=== PATIENT | male | born 1945 | race Caucasian/White ===

== ENCOUNTER 2018-09-11 12:34 | Emergency (ER) | payer MEDICARE, MEDICAID ==
[~2018-09-11] VITALS: Ht 165.1 cm; Wt 85.5 kg
[2018-09-11] MEDS ORDERED: normal saline 1000ml 1,000 ML IV ONE (13:05)
[2018-09-11 13:25] LABS: BASOPHILS # (AUTO) 0.1 X10'3 (0-0.2); BASOPHILS % (AUTO) 0.3 % (0-1); HEMOGLOBIN 7.4 g/dl (14.0-17.9)
[2018-09-11 13:27] LABS: EOSINOPHILS # (AUTO) 0.6 X10'3 (0-0.9); HEMATOCRIT 23.1 % (42.0-52.0); LYMPHOCYTES # (AUTO) 1.7 X10'3 (1.1-4.8); LYMPHOCYTES % (AUTO) 7.9 % (21-51); MEAN CORPUSCULAR HEMOGLOBIN 28.1 PG (27.0-31.0); MEAN CORPUSCULAR VOLUME 87.8 FL (78-98); MEAN PLATELET VOLUME 9.8 FL (7.4-10.4); MONOCYTES # (AUTO) 5.7 X10'3 (0-0.9); MONOCYTES % (AUTO) 26.9 % (2-12); NEUTROPHILS # (AUTO) 13.2 X10'3 (1.8-7.7); NEUTROPHILS % (AUTO) 61.9 % (42-75); PLATELET COUNT 161 X10'3 (140-440); RED BLOOD COUNT 2.63 X10'6 (4.70-6.10); RED CELL DISTRIBUTION WIDTH 18.9 % (11.5-14.5); WHITE BLOOD COUNT 21.3 X10'3 (4.5-11.0)
[2018-09-11 13:30] LABS: ALANINE AMINOTRANSFERASE 16 U/L (12-78); ALBUMIN 2.3 G/DL (3.4-5.0); ALBUMIN/GLOBULIN RATIO 0.4 (1.1-1.5); ALKALINE PHOSPHATASE 141 IU/L (46-116); ANION GAP 6 (8-16); ASPARTATE AMINO TRANSFERASE 25 U/L (10-37); BILIRUBIN,TOTAL 0.6 MG/DL (0.1-1.0); BLOOD UREA NITROGEN 33 MG/DL (7-18); BUN/CREATININE RATIO 23.2 (5.4-32.0); CALCIUM 8.6 MG/DL (8.5-10.1); CHLORIDE 96 MMOL/L (99-107); CREATININE 1.42 MG/DL (0.60-1.10); GLUCOSE 150 MG/DL (70-104); SODIUM 131 MMOL/L (135-145); TOTAL CARBON DIOXIDE 28.7 MMOL/L (24-32); TOTAL PROTEIN 8.6 G/DL (6.4-8.2); eGFR 49 ML/MIN
[2018-09-11 13:31] LABS: CLARITY,URINE CLOUDY (Clear); COLOR,URINE YELLOW (Yellow); GLUCOSE, URINE NEGATIVE (Neg); KETONES,URINE NEGATIVE (Neg); LEUKOCYTE ESTERASE ,URINE NEGATIVE (Neg); NITRITES, URINE NEGATIVE (Neg); OCCULT BLOOD,URINE MODERATE (Neg); PH,URINE 5.5 (4.8-8.0); PROTEIN,URINE 30 mg/dl (Neg); UROBILINOGEN,URINE 0.2 E.U/dL (0.2-1.0)
[2018-09-11 13:32] LABS: UA COLLECTION TYPE FOLEY CATH
[2018-09-11 13:32] LABS: PARTIAL THROMBOPLASTIN TIME 32 SECONDS (22-32)
[2018-09-11 13:37] LABS: BACTERIA,URINE 1+ /HPF (Neg); SQUAMOUS EPITHELIAL CELL,UR FEW /LPF (FEW); YEAST MANY /HPF (NEGATIVE)
[2018-09-11 13:38] LABS: WBC,URINE 0-4 /HPF (0-4)
[2018-09-11 13:39] LABS: WBC CLUMPS,URINE FEW /HPF (NEGATIVE)
[2018-09-11 13:52] LABS: ANISOCYTOSIS 1+; PLATELET ESTIMATE NORMAL; TOTAL CELLS COUNTED 100
[2018-09-11] MEDS ORDERED: CefTRIAXone/D5W-Rocephin 1gm 50 ML IV ONE (14:00)
[2018-09-11] MEDS ORDERED: CIPR-230 PO (14:01)
--- NOTE | 2018-09-11 14:30 | NUR ---
[facility] HAS BEEN INITI[facility], NO DRIVERS AVAILABLE UNTIL AFTER 4.
[2018-09-11 15:23] VITALS: BP 141/67
== END 2018-09-11 16:40 | disposition home or self-care (01) ==
LOC: ER 12:35
DX: N39.0 Urinary tract infection, site not specified (principal); D64.9 Anemia, unspecified; J44.9 Chronic obstructive pulmonary disease, unspecified; Z86.14 Personal history of Methicillin resistant Staphylococcus aureus infection
CPT/HCPCS: 36415; 71045; 80053; 81001; 85025; 85610; 85730; 86885; 86900; 86901; 87088; 93005; 96365; 99284; J0696; J7030; 87077

== ENCOUNTER 2018-09-20 07:13 | Inpatient (IN) | payer MEDICARE, MEDICAID ==
[~2018-09-20] VITALS: Ht 165.1 cm; Wt 84.5 kg
[~2018-09-20 07:13] MED LIST: CIPR-230 PO; FLO0.4C PO; LACT1CAP65 PO; LANTUS SQ; UNABLE TO OBTAIN; VANC1VIA21 IV
[2018-09-20] MEDS ORDERED: methylPREDNISolone sod succ 125mg/2ml vial IV ONE (07:45)
[2018-09-20] MEDS ORDERED: ipratropium/albuterol 3ml nebule NEB ONE (07:45)
[2018-09-20] MEDS ORDERED: cefepime 1GM/NS ADD-VANTAGE 100 ML IV ONE (07:50)
[2018-09-20] MEDS ORDERED: levoFLOXACIN-Levaquin 500mg/D5 100 ML IV ONE (07:50)
[2018-09-20 08:07] LABS: BASOPHILS # (AUTO) 0.1 X10'3 (0-0.2); BASOPHILS % (AUTO) 0.2 % (0-1); HEMATOCRIT 23.9 % (42.0-52.0); HEMOGLOBIN 7.5 g/dl (14.0-17.9)
[2018-09-20 08:09] LABS: EOSINOPHILS # (AUTO) 0.5 X10'3 (0-0.9); EOSINOPHILS % (AUTO) 1.6 % (0-6); LYMPHOCYTES # (AUTO) 1.4 X10'3 (1.1-4.8); LYMPHOCYTES % (AUTO) 4.9 % (21-51); MEAN CORPUSCULAR HEMOGLOBIN 27.8 PG (27.0-31.0); MEAN CORPUSCULAR HGB CONC 31.6 g/dL (33.0-36.5); MEAN PLATELET VOLUME 10.1 FL (7.4-10.4); MONOCYTES # (AUTO) 6.5 X10'3 (0-0.9); MONOCYTES % (AUTO) 22.8 % (2-12); NEUTROPHILS # (AUTO) 20.1 X10'3 (1.8-7.7); NEUTROPHILS % (AUTO) 70.5 % (42-75); PLATELET COUNT 128 X10'3 (140-440); RED BLOOD COUNT 2.71 X10'6 (4.70-6.10); RED CELL DISTRIBUTION WIDTH 19.5 % (11.5-14.5)
[2018-09-20 08:19] LABS: ALANINE AMINOTRANSFERASE 14 U/L (12-78); ALBUMIN 2.3 G/DL (3.4-5.0); ALBUMIN/GLOBULIN RATIO 0.4 (1.1-1.5); ALKALINE PHOSPHATASE 138 IU/L (46-116); ANION GAP 8 (8-16); ASPARTATE AMINO TRANSFERASE 27 U/L (10-37); BILIRUBIN,TOTAL 0.7 MG/DL (0.1-1.0); BLOOD UREA NITROGEN 37 MG/DL (7-18); BUN/CREATININE RATIO 28.2 (5.4-32.0); CALCIUM 8.6 MG/DL (8.5-10.1); CHLORIDE 103 MMOL/L (99-107); CREATININE 1.31 MG/DL (0.60-1.10); GLUCOSE 130 MG/DL (70-104); POTASSIUM 4.3 MMOL/L (3.5-5.1); SODIUM 137 MMOL/L (135-145); TOTAL PROTEIN 8.2 G/DL (6.4-8.2); eGFR 53 ML/MIN
[2018-09-20 08:26] LABS: MAGNESIUM 1.7 MG/DL (1.5-2.4)
[2018-09-20 08:29] LABS: PARTIAL THROMBOPLASTIN TIME 28 SECONDS (22-32)
[2018-09-20 08:31] LABS: WHITE BLOOD COUNT 28.6 X10'3 (4.5-11.0)
--- NOTE | 2018-09-20 08:44 | NUR ---
called pharmacy,still making maxipime.
[2018-09-20 08:47] LABS: ANISOCYTOSIS 2+; HYPOCHROMASIA 1+; PLATELET ESTIMATE DECREASED; TOTAL CELLS COUNTED 100
[2018-09-20] MEDS ORDERED: aspirin 81mg tab.chew PO ONE (09:40)
[2018-09-20] MEDS ORDERED: nitroGLYCERIN 0.4mg/hour patch TD ONE (09:40)
--- NOTE | 2018-09-20 09:46 | NUR ---
patient placed on venturi mask 50% oxygen,sating 83%.
--- NOTE | 2018-09-20 09:46 | NUR ---
patient now back on non rebreather sating 92%.
--- NOTE | 2018-09-20 10:03 | NUR ---
Dr. perkins made aware that patient is requesting for pain medication for generalized pain,no order at this time.
[2018-09-20 10:10] LABS: ABG BASE EXCESS -1.8 mmol/L (-2.0-3.0); ABG HCO3 22.4 mmol/L (22.0-26.0); ABG OXYGEN SATURATION 92.5 % (95-98); ABG PCO2 (T) 35.4 mmHg (35.0-48.0); ABG PO2 (T) 69.7 mmHg (83-108); ALLEN'S TEST Positive; FCOHb 1.3 % (0.5-1.5); FLOW 15 L/min; FMetHb 0.3 % (0.3-1.12); TOTAL HEMOGLOBIN 7.6 G/dl (14.0-18.0)
--- NOTE | 2018-09-20 10:30 | NUR ---
patient started on bipap,call light within reach. Addendum: 09/20/18 at 1152 by KIM patient on cpap.
[2018-09-20] MEDS ORDERED: LORA0.5T PO (11:14)
[2018-09-20] MEDS ORDERED: SENN-162 PO (11:14)
[2018-09-20] MEDS ORDERED: MULT-1085 PO (11:14)
[2018-09-20] MEDS ORDERED: DOCU-148 PO (11:14)
[2018-09-20] MEDS ORDERED: FOLI0.4T2 PO (11:14)
[2018-09-20] MEDS ORDERED: PER5325T PO (11:14)
[2018-09-20] MEDS ORDERED: PRED1TAB PO (11:14)
[2018-09-20] MEDS ORDERED: POLY17PO10 PO (11:14)
[2018-09-20] MEDS ORDERED: OMEP40CA13 PO (11:14)
[2018-09-20] MEDS ORDERED: FLO0.4C PO (11:14)
[2018-09-20] MEDS ORDERED: MORP-92 PO (11:14)
[2018-09-20] MEDS ORDERED: LACT1CAP65 PO (11:14)
--- NOTE | 2018-09-20 11:22 | NUR ---
fio2 decreased to 45%.Goal 88-90%,patient sating 94%.
[2018-09-20] MEDS: morphine 2 MG/ML inj. syringe IV PRN ×2 (11:25→13:05)
[2018-09-20] MEDS ORDERED: magnesium 2GM in 50ml NS 50 ML IV PRN (11:40)
[2018-09-20] MEDS ORDERED: potassium Cl 20 mEq SR tablet PO PRN ×2 (11:40)
[2018-09-20] MEDS ORDERED: magnesium hydroxide 30ml (MOM) UD suspension PO PRN (11:40)
[2018-09-20] MEDS ORDERED: magnesium Cl slow-release 64mg tablet PO PRN (11:40)
[2018-09-20] MEDS: K and/or MAG REPLACEMENT MC SCH (11:40)
[2018-09-20] MEDS ORDERED: ipratropium/albuterol 3ml nebule NEB PRN (11:40)
[2018-09-20] MEDS ORDERED: ondansetron/PF 4mg/2ml inj IV PRN (11:40)
[2018-09-20] MEDS ORDERED: furosemide 40mg/4ml inj IV ONE (11:40)
[2018-09-20] MEDS ORDERED: acetaminophen 325mg tablet PO PRN (11:40)
[2018-09-20] MEDS ORDERED: mag hydrox/Alum hydrox/simeth 30ml oral suspension PO PRN (11:40)
[2018-09-20] MEDS ORDERED: potassium CL 10mEq/100ml bag 100 ML IV PRN ×2 (11:40)
[2018-09-20] MEDS ORDERED: magnesium 4gm in 100ml NS 100 ML IV PRN (11:40)
--- NOTE | 2018-09-20 12:30 | NUR ---
repositioned for comfort.
[2018-09-20 12:31] LABS: ABG BASE EXCESS 0.3 mmol/L (-2.0-3.0); ABG HCO3 24.5 mmol/L (22.0-26.0); ABG OXYGEN SATURATION 93.4 % (95-98); ABG PCO2 (T) 37.7 mmHg (35.0-48.0); ABG PH (T) 7.431 (7.350-7.450); ABG PO2 (T) 71.4 mmHg (83-108); ALLEN'S TEST Positive; FMetHb 0.2 % (0.3-1.12); FO2Hb 92.3 % (94-100); MINUTE VOLUME 13 L/min; RESPIRATORY RATE (OBSERVED) 25 b/min; TOTAL HEMOGLOBIN 7.9 G/dl (14.0-18.0)
[2018-09-20] MEDS ORDERED: FERR-119 PO (12:41)
[2018-09-20] MEDS ORDERED: INSU100V11 SQ (12:48)
[2018-09-20] MEDS ORDERED: MELA3TAB64 PO (12:48)
[2018-09-20] MEDS ORDERED: FOLI1TAB16 PO (12:48)
[2018-09-20] MEDS ORDERED: IPRA3AMP31 IH (12:48)
[2018-09-20] MEDS ORDERED: OXYC-658 PO (12:50)
[2018-09-20] MEDS ORDERED: OXYC-580 PO (12:50)
[2018-09-20] MEDS ORDERED: THIA100T73 PO (12:55)
[2018-09-20] MEDS ORDERED: VANC750P8 IV (12:57)
--- NOTE | 2018-09-20 13:04 | NUR ---
patient repositioned to left side,skin checked,no noted skin breakdown.
--- NOTE | 2018-09-20 13:09 | NUR ---
urine output from cath 900ml.
--- NOTE | 2018-09-20 14:06 | NUR ---
CALLED REPORT TO PCU,RECEIVING RN WITH A PATIENT WILL CALL ED RN IN 10 MINUTES.
--- NOTE | 2018-09-20 14:10 | NUR ---
Received report from ER nurse.
--- NOTE | 2018-09-20 14:35 | NUR ---
Patient arrived to the unit. He was oriented to his room. His vital signs are stable: BP:119/64 HR:101 oxygen:92 on CPAP RR: 22
[2018-09-20 14:40] VITALS: BP 119/64
[2018-09-20] MEDS: ipratropium/albuterol 3ml nebule NEB SCH ×3 (15:02→23:11)
[2018-09-20] MEDS: methylPREDNISolone sod succ 125mg/2ml vial IV SCH ×2 (15:17→20:49)
--- NOTE | 2018-09-20 15:30 | NUR ---
While patient was receiving dialysis he went into SVT in the 140s. Dialysis nurse was informed. Blood pressure dropped to 86/67. Rapid was called and ICU nurse at bedside assessed. Dialysis nurse called Dr. Moon and informed him of the situation. orders were given to dialysis nurse. Patient then went into A.Fib. Will continue to monitor. Addendum: 09/20/18 at 1933 by Amber Bal RN timing of event was around 1730
[2018-09-20] MEDS ORDERED: cefepime 1GM/NS ADD-VANTAGE 100 ML IV SCH (16:00)
[2018-09-20] MEDS: cefepime 1GM in D5W 50mL 50 ML IV SCH (17:45)
[2018-09-20 18:00] VITALS: BP 106/58
--- NOTE | 2018-09-20 19:02 | NUR ---
Patient in room PCU 3022. I have received report from Amber LIN and had the opportunity to ask questions and assume patient care.
--- NOTE | 2018-09-20 19:35 | NUR ---
Problems reprioritized. Patient report given, questions answered & plan of care reviewed with Brooke.
[2018-09-20 20:00] VITALS: BP 131/57
[2018-09-20] MEDS ORDERED: non-formulary drug (Lactobacillus Acidophilus (Probiotic) 1 CAP) PO SCH (20:00)
[2018-09-20] MEDS: furosemide 40mg/4ml inj IV SCH (20:49)
[2018-09-20] MEDS: docusate sod 100mg capsule PO SCH (20:50)
[2018-09-20] MEDS: lactobacillus rhamnosus 10,000 MMU CELLS/CAPSULE PO SCH (20:50)
[2018-09-20] MEDS: morphine ER 15mg tablet PO SCH (20:51)
[2018-09-20] MEDS: Melatonin 3mg tablet PO SCH (20:51)
[2018-09-20 22:00] VITALS: BP 122/61
[2018-09-20] MEDS ORDERED: dextrose ORAL solution 15 GM/59 ML bottle PO PRN ×2 (22:00)
[2018-09-20] MEDS ORDERED: MESSAGE TO PHARMACY PO ONE (22:00)
[2018-09-20] MEDS ORDERED: dextrose 50%-water 50ml dispensing syringe IV PRN ×2 (22:00)
[2018-09-20] MEDS ORDERED: glucagon, human recombinant 1mg kit SUBCUT PRN (22:00)
[2018-09-20] MEDS ORDERED: LORazepam 2 mg/ml vial IV PRN (22:10)
[2018-09-20] MEDS: LORazepam 0.5 MG tablet PO PRN (22:26)
[2018-09-20 22:44] LABS: HEMOGLOBIN A1C 5.7 % (4.5-6.2)
[2018-09-20] MEDS: oxyCODONE IR 5mg (immed. release) tablet PO PRN (23:13)
[2018-09-20] MEDS: insulin glargine (Lantus) pen - multi-dose SQ SCH (23:17)
[2018-09-21] VITALS (17 sets, daily range): BP systolic 105–152; BP diastolic 44–77
[2018-09-21] MEDS: cefepime 1GM in D5W 50mL 50 ML IV SCH ×2 (00:01→09:01)
[2018-09-21] MEDS: methylPREDNISolone sod succ 125mg/2ml vial IV SCH ×4 (02:00→20:51)
[2018-09-21] MEDS: oxyCODONE IR 5mg (immed. release) tablet PO PRN ×2 (03:04→18:59)
[2018-09-21] MEDS: LORazepam 0.5 MG tablet PO PRN ×3 (04:19→18:58)
--- NOTE | 2018-09-21 06:54 | NUR ---
Patient in room PCU 3022. I have received report from RILEY Cox and had the opportunity to ask questions and assume patient care.
[2018-09-21] MEDS: ipratropium/albuterol 3ml nebule NEB SCH ×5 (07:38→22:49)
--- NOTE | 2018-09-21 07:41 | NUR ---
Problems reprioritized. Patient report given, questions answered & plan of care reviewed with Anabel LIN.
[2018-09-21] MEDS: K and/or MAG REPLACEMENT MC SCH (08:00)
[2018-09-21] MEDS ORDERED: non-formulary drug (Multivitamin (Multi Vitamin Daily) 1 EACH) PO SCH (08:00)
[2018-09-21] MEDS ORDERED: tamsulosin 0.4mg capsule PO SCH (08:00)
--- NOTE | 2018-09-21 08:20 | NUR ---
Patient in room PCU 3022. I have received report from Anabel LIN and had the opportunity to ask questions and assume patient care.
--- NOTE | 2018-09-21 08:20 | NUR ---
Problems reprioritized. Patient report given, questions answered & plan of care reviewed with RILEY Mix.
[2018-09-21 08:23] LABS: BASOPHILS # (AUTO) 0.1 X10'3 (0-0.2); BASOPHILS % (AUTO) 0.3 % (0-1); EOSINOPHILS % (AUTO) 0 % (0-6); LYMPHOCYTES # (AUTO) 0.7 X10'3 (1.1-4.8); LYMPHOCYTES % (AUTO) 3.6 % (21-51); MEAN CORPUSCULAR HEMOGLOBIN 27.9 PG (27.0-31.0); MEAN CORPUSCULAR HGB CONC 31.8 g/dL (33.0-36.5); MEAN CORPUSCULAR VOLUME 87.5 FL (78-98); MEAN PLATELET VOLUME 10.3 FL (7.4-10.4); MONOCYTES # (AUTO) 1.2 X10'3 (0-0.9); MONOCYTES % (AUTO) 6.3 % (2-12); NEUTROPHILS # (AUTO) 16.9 X10'3 (1.8-7.7); NEUTROPHILS % (AUTO) 89.8 % (42-75); PLATELET COUNT 104 X10'3 (140-440); RED BLOOD COUNT 2.34 X10'6 (4.70-6.10); RED CELL DISTRIBUTION WIDTH 19.5 % (11.5-14.5); WHITE BLOOD COUNT 18.9 X10'3 (4.5-11.0)
[2018-09-21 08:25] LABS: HEMOGLOBIN 6.5 g/dl (14.0-17.9)
[2018-09-21 08:26] LABS: HEMATOCRIT 20.5 % (42.0-52.0)
[2018-09-21 08:36] LABS: ALANINE AMINOTRANSFERASE 14 U/L (12-78); ALBUMIN 2.1 G/DL (3.4-5.0); ALBUMIN/GLOBULIN RATIO 0.4 (1.1-1.5); ALKALINE PHOSPHATASE 115 IU/L (46-116); ANION GAP 8 (8-16); ASPARTATE AMINO TRANSFERASE 23 U/L (10-37); BILIRUBIN,TOTAL 0.5 MG/DL (0.1-1.0); BLOOD UREA NITROGEN 40 MG/DL (7-18); BUN/CREATININE RATIO 27.2 (5.4-32.0); CALCIUM 8.3 MG/DL (8.5-10.1); CHLORIDE 102 MMOL/L (99-107); CHOL/HDL RATIO 3.2 (0.00-4.99); CHOLESTEROL 82 MG/DL (0-200); CREATININE 1.47 MG/DL (0.60-1.10); GLUCOSE 194 MG/DL (70-104); HDL CHOLESTEROL 26 MG/DL (35-60); LDL CHOLESTEROL 51 MG/DL (50-100); MAGNESIUM 1.8 MG/DL (1.5-2.4); POTASSIUM 4.3 MMOL/L (3.5-5.1); SODIUM 137 MMOL/L (135-145); TOTAL CARBON DIOXIDE 27.4 MMOL/L (24-32); TOTAL PROTEIN 7.7 G/DL (6.4-8.2); TRIGLYCERIDES 52 MG/DL (20-135); eGFR 47 ML/MIN
--- NOTE | 2018-09-21 08:41 | NUR ---
Page to Dr Gunn re: Room 3022 [facility] critical lab hgb 6.5/hct 20.5, please advise Maria Del Rosario [phone], call back from Dr Gunn orders for transfusion
[2018-09-21] MEDS: lactobacillus rhamnosus 10,000 MMU CELLS/CAPSULE PO SCH ×2 (08:59→20:51)
[2018-09-21] MEDS: multivitamins, therapeutics tablet PO SCH (08:59)
[2018-09-21] MEDS: morphine ER 15mg tablet PO SCH ×2 (09:01→20:51)
[2018-09-21] MEDS: docusate sod 100mg capsule PO SCH ×2 (09:01→20:51)
[2018-09-21] MEDS: furosemide 40mg/4ml inj IV SCH ×2 (09:01→20:51)
[2018-09-21 09:12] LABS: TOTAL CELLS COUNTED 100
[2018-09-21 09:14] LABS: ANISOCYTOSIS 2+; PLATELET ESTIMATE DECREASED
[2018-09-21 09:15] LABS: HYPOCHROMASIA 1+; LARGE PLATELETS FEW; POLYCHROMASIA 1+; TEAR DROP CELLS FEW
[2018-09-21] MEDS: pantoprazole 40mg Tablet.DR PO SCH (09:25)
[2018-09-21] MEDS: insulin Lispro (HumaLOG) vial - multi-dose SQ SCH ×2 (13:23→19:05)
[2018-09-21] MEDS ORDERED: cefepime inj. 1 GM in dextrose 5%-water 50ml 50 ML IV SCH (16:00)
[2018-09-21] MEDS: cefepime inj. 1 GM in dextrose 5%-water 50ml 50 ML IV SCH (16:05)
[2018-09-21 17:30] LABS: HEMATOCRIT 24.1 % (42.0-52.0); HEMOGLOBIN 7.7 g/dl (14.0-17.9); MEAN CORPUSCULAR HEMOGLOBIN 27.9 PG (27.0-31.0); MEAN CORPUSCULAR HGB CONC 32.1 g/dL (33.0-36.5); MEAN CORPUSCULAR VOLUME 86.9 FL (78-98); MEAN PLATELET VOLUME 10.4 FL (7.4-10.4); PLATELET COUNT 107 X10'3 (140-440); RED BLOOD COUNT 2.77 X10'6 (4.70-6.10); RED CELL DISTRIBUTION WIDTH 18.1 % (11.5-14.5)
--- NOTE | 2018-09-21 18:00 | NUR ---
Problems reprioritized. Patient report given, questions answered & plan of care reviewed with Brooke LIN.
--- NOTE | 2018-09-21 18:30 | NUR ---
Patient in room PCU 3022. I have received report from Maria Del Rosario LIN and had the opportunity to ask questions and assume patient care.
[2018-09-21] MEDS: Melatonin 3mg tablet PO SCH (20:51)
[2018-09-21] MEDS: insulin glargine (Lantus) pen - multi-dose SQ SCH (22:13)
[2018-09-22] VITALS (9 sets, daily range): BP systolic 107–140; BP diastolic 59–80
[2018-09-22] MEDS: cefepime inj. 1 GM in dextrose 5%-water 50ml 50 ML IV SCH ×3 (00:20→16:03)
[2018-09-22] MEDS: oxyCODONE IR 5mg (immed. release) tablet PO PRN (00:32)
[2018-09-22] MEDS: LORazepam 0.5 MG tablet PO PRN ×3 (00:32→19:16)
[2018-09-22] MEDS: methylPREDNISolone sod succ 125mg/2ml vial IV SCH ×4 (02:12→19:05)
--- NOTE | 2018-09-22 06:00 | NUR ---
Patient in room PCU 3022. I have received report from Brooke LIN and had the opportunity to ask questions and assume patient care.
--- NOTE | 2018-09-22 06:41 | NUR ---
Problems reprioritized. Patient report given, questions answered & plan of care reviewed with Maria Del Rosario LIN.
[2018-09-22] MEDS: ipratropium/albuterol 3ml nebule NEB SCH ×5 (07:15→23:05)
[2018-09-22] MEDS: K and/or MAG REPLACEMENT MC SCH (08:00)
[2018-09-22] MEDS: insulin Lispro (HumaLOG) vial - multi-dose SQ SCH ×3 (08:33→19:01)
[2018-09-22] MEDS: morphine ER 15mg tablet PO SCH ×2 (08:34→19:03)
[2018-09-22] MEDS: pantoprazole 40mg Tablet.DR PO SCH (08:34)
[2018-09-22] MEDS: tamsulosin 0.4mg capsule PO SCH (08:34)
[2018-09-22] MEDS: multivitamins, therapeutics tablet PO SCH (08:34)
[2018-09-22] MEDS: lactobacillus rhamnosus 10,000 MMU CELLS/CAPSULE PO SCH ×2 (08:34→19:03)
[2018-09-22] MEDS: furosemide 40mg/4ml inj IV SCH ×2 (08:34→19:05)
[2018-09-22] MEDS: docusate sod 100mg capsule PO SCH ×2 (08:34→19:03)
[2018-09-22 10:28] LABS: BASOPHILS # (AUTO) 0.1 X10'3 (0-0.2); BASOPHILS % (AUTO) 0.4 % (0-1); EOSINOPHILS % (AUTO) 0 % (0-6); HEMATOCRIT 25.8 % (42.0-52.0); HEMOGLOBIN 8.2 g/dl (14.0-17.9); LYMPHOCYTES # (AUTO) 0.6 X10'3 (1.1-4.8); LYMPHOCYTES % (AUTO) 2.5 % (21-51); MEAN CORPUSCULAR HGB CONC 31.9 g/dL (33.0-36.5); MEAN CORPUSCULAR VOLUME 87.7 FL (78-98); MEAN PLATELET VOLUME 10.5 FL (7.4-10.4); MONOCYTES # (AUTO) 2.6 X10'3 (0-0.9); NEUTROPHILS # (AUTO) 20.4 X10'3 (1.8-7.7); NEUTROPHILS % (AUTO) 86.1 % (42-75); PLATELET COUNT 107 X10'3 (140-440); RED BLOOD COUNT 2.94 X10'6 (4.70-6.10); RED CELL DISTRIBUTION WIDTH 18.6 % (11.5-14.5); WHITE BLOOD COUNT 23.7 X10'3 (4.5-11.0)
[2018-09-22 10:42] LABS: ALANINE AMINOTRANSFERASE 16 U/L (12-78); ALBUMIN 2.3 G/DL (3.4-5.0); ALBUMIN/GLOBULIN RATIO 0.4 (1.1-1.5); ALKALINE PHOSPHATASE 120 IU/L (46-116); ANION GAP 11 (8-16); ASPARTATE AMINO TRANSFERASE 21 U/L (10-37); BILIRUBIN,TOTAL 0.6 MG/DL (0.1-1.0); BLOOD UREA NITROGEN 55 MG/DL (7-18); BUN/CREATININE RATIO 37.4 (5.4-32.0); CALCIUM 8.2 MG/DL (8.5-10.1); CHLORIDE 102 MMOL/L (99-107); CREATININE 1.47 MG/DL (0.60-1.10); GLUCOSE 267 MG/DL (70-104); MAGNESIUM 1.7 MG/DL (1.5-2.4); PHOSPHORUS 3.4 MG/DL (2.3-4.5); POTASSIUM 3.8 MMOL/L (3.5-5.1); SODIUM 139 MMOL/L (135-145); TOTAL CARBON DIOXIDE 26.4 MMOL/L (24-32); TOTAL PROTEIN 7.9 G/DL (6.4-8.2); eGFR 47 ML/MIN
[2018-09-22 11:21] LABS: ANISOCYTOSIS 2+; PLATELET ESTIMATE DECREASED; TOTAL CELLS COUNTED 100
[2018-09-22 11:22] LABS: HYPOCHROMASIA 1+; POLYCHROMASIA 2+; TEAR DROP CELLS 1+
--- NOTE | 2018-09-22 12:31 | NUR ---
Page to Dr Welch re: Room 9202A Edu Maguire, can I add Carb Control to diet? please advise Maria Del Rosario [phone]
--- NOTE | 2018-09-22 17:40 | NUR ---
Second page to Dr Welch re: Room 0688N Constantine Maguire can I add Carb Control to his diet please advise Maria Del Rosario [phone]
--- NOTE | 2018-09-22 18:30 | NUR ---
Patient in room PCU 3022. I have received report from RILEY Aguilar and had the opportunity to ask questions and assume patient care.
--- NOTE | 2018-09-22 18:31 | NUR ---
Problems reprioritized. Patient report given, questions answered & plan of care reviewed with Analisa LIN.
[2018-09-22] MEDS: Melatonin 3mg tablet PO SCH (21:18)
[2018-09-22] MEDS ORDERED: insulin glargine (Lantus) pen - multi-dose SQ SCH (21:31)
[2018-09-23] MEDS: cefepime inj. 1 GM in dextrose 5%-water 50ml 50 ML IV SCH ×2 (00:36→07:32)
[2018-09-23] MEDS: methylPREDNISolone sod succ 125mg/2ml vial IV SCH ×3 (02:32→13:29)
[2018-09-23 03:00] VITALS: BP 115/58
[2018-09-23 06:00] VITALS: BP 124/67
--- NOTE | 2018-09-23 06:00 | NUR ---
Patient in room PCU 3022. I have received report from Analisa LIN and had the opportunity to ask questions and assume patient care.
--- NOTE | 2018-09-23 06:16 | NUR ---
Problems reprioritized. Patient report given, questions answered & plan of care reviewed with RILEY Aguilar.
[2018-09-23 06:23] LABS: BASOPHILS % (AUTO) 0.2 % (0-1); EOSINOPHILS % (AUTO) 0 % (0-6); HEMATOCRIT 26.6 % (42.0-52.0); HEMOGLOBIN 8.6 g/dl (14.0-17.9); LYMPHOCYTES # (AUTO) 0.7 X10'3 (1.1-4.8); LYMPHOCYTES % (AUTO) 3.4 % (21-51); MEAN CORPUSCULAR HEMOGLOBIN 28.2 PG (27.0-31.0); MEAN CORPUSCULAR HGB CONC 32.4 g/dL (33.0-36.5); MEAN CORPUSCULAR VOLUME 87.1 FL (78-98); MEAN PLATELET VOLUME 10.4 FL (7.4-10.4); MONOCYTES # (AUTO) 2.3 X10'3 (0-0.9); MONOCYTES % (AUTO) 10.7 % (2-12); NEUTROPHILS # (AUTO) 18.5 X10'3 (1.8-7.7); NEUTROPHILS % (AUTO) 85.7 % (42-75); PLATELET COUNT 114 X10'3 (140-440); RED BLOOD COUNT 3.05 X10'6 (4.70-6.10); RED CELL DISTRIBUTION WIDTH 18.6 % (11.5-14.5); WHITE BLOOD COUNT 21.6 X10'3 (4.5-11.0)
[2018-09-23 06:33] LABS: ALANINE AMINOTRANSFERASE 17 U/L (12-78); ALBUMIN 2.4 G/DL (3.4-5.0); ALBUMIN/GLOBULIN RATIO 0.4 (1.1-1.5); ALKALINE PHOSPHATASE 117 IU/L (46-116); ANION GAP 9 (8-16); ASPARTATE AMINO TRANSFERASE 24 U/L (10-37); BILIRUBIN,TOTAL 0.8 MG/DL (0.1-1.0); BLOOD UREA NITROGEN 58 MG/DL (7-18); BUN/CREATININE RATIO 43.6 (5.4-32.0); CALCIUM 8.4 MG/DL (8.5-10.1); CHLORIDE 102 MMOL/L (99-107); CREATININE 1.33 MG/DL (0.60-1.10); GLUCOSE 155 MG/DL (70-104); MAGNESIUM 1.8 MG/DL (1.5-2.4); PHOSPHORUS 3.6 MG/DL (2.3-4.5); SODIUM 140 MMOL/L (135-145); TOTAL CARBON DIOXIDE 29.1 MMOL/L (24-32); TOTAL PROTEIN 7.9 G/DL (6.4-8.2); eGFR 52 ML/MIN
[2018-09-23] MEDS: ipratropium/albuterol 3ml nebule NEB SCH ×2 (07:02→11:04)
[2018-09-23] MEDS: multivitamins, therapeutics tablet PO SCH (07:30)
[2018-09-23] MEDS: morphine ER 15mg tablet PO SCH (07:31)
[2018-09-23] MEDS: pantoprazole 40mg Tablet.DR PO SCH (07:31)
[2018-09-23] MEDS: lactobacillus rhamnosus 10,000 MMU CELLS/CAPSULE PO SCH (07:31)
[2018-09-23] MEDS: furosemide 40mg/4ml inj IV SCH (07:31)
[2018-09-23] MEDS: tamsulosin 0.4mg capsule PO SCH (07:31)
[2018-09-23] MEDS: docusate sod 100mg capsule PO SCH (07:31)
[2018-09-23] MEDS: insulin Lispro (HumaLOG) vial - multi-dose SQ SCH ×2 (07:53→13:27)
[2018-09-23] MEDS: K and/or MAG REPLACEMENT MC SCH (07:58)
[2018-09-23 10:00] VITALS: BP 137/69
[2018-09-23 12:00] VITALS: BP 130/63
[2018-09-23] MEDS: LORazepam 0.5 MG tablet PO PRN (14:22)
--- NOTE | 2018-09-23 14:30 | NUR ---
Patient discharged stable for transfer to [facility]. Report called to Olive LIN at [facility]. All personal belongings returned to patient. Mobile product examiner leads removed. Patient leaving with merchant catheter in place and Left Upper Arm PICC line (dressing changed 09/23/2018). Patient picked up by [facility] ambulance personnel and transported to [facility] via ambulance.
== END 2018-09-23 14:39 | DRG 871 ==
LOC: ER 07:14 → PCU 3S 14:30
PROVIDERS: ADMIT Family Medicine; ATTEND Family Medicine
PROC: 5A09357 Assistance with Respiratory Ventilation, Less than 24 Consecutive Hours, Continuous Positive Airway Pressure (ICD-10-PCS; principal; 2018-09-20)
PROC: 5A09357 Assistance with Respiratory Ventilation, Less than 24 Consecutive Hours, Continuous Positive Airway Pressure (ICD-10-PCS; 2018-09-21)
PROC: 30233N1 Transfusion of Nonautologous Red Blood Cells into Peripheral Vein, Percutaneous Approach (ICD-10-PCS; 2018-09-21)
PROC: 5A09357 Assistance with Respiratory Ventilation, Less than 24 Consecutive Hours, Continuous Positive Airway Pressure (ICD-10-PCS; 2018-09-22)
PROC: 5A09357 Assistance with Respiratory Ventilation, Less than 24 Consecutive Hours, Continuous Positive Airway Pressure (ICD-10-PCS; 2018-09-23)
DX: A41.02 Sepsis due to Methicillin resistant Staphylococcus aureus (principal); I21.4 Non-ST elevation (NSTEMI) myocardial infarction; I50.33 Acute on chronic diastolic (congestive) heart failure; J18.1 Lobar pneumonia, unspecified organism; J96.01 Acute respiratory failure with hypoxia; J44.0 Chronic obstructive pulmonary disease with (acute) lower respiratory infection; J44.1 Chronic obstructive pulmonary disease with (acute) exacerbation; N13.8 Other obstructive and reflux uropathy; D64.9 Anemia, unspecified; E11.22 Type 2 diabetes mellitus with diabetic chronic kidney disease; J84.10 Pulmonary fibrosis, unspecified; N40.1 Benign prostatic hyperplasia with lower urinary tract symptoms; N18.9 Chronic kidney disease, unspecified; Z87.440 Personal history of urinary (tract) infections; Z87.891 Personal history of nicotine dependence; Z86.14 Personal history of Methicillin resistant Staphylococcus aureus infection; Z79.4 Long term (current) use of insulin; Z90.49 Acquired absence of other specified parts of digestive tract; Z79.899 Other long term (current) drug therapy
CPT/HCPCS: 36415; 36600; 71045; 80053; 80061; 82803; 82948; 83036; 83605; 83735; 83880; 84100; 84484; 85018; 85025; 85027; 85610; 85730; 86885; 86900; 86901; 86920; 87040; 87081; 93005; 93306; 94640; 94660; 94760; 96365; 96367; 96375; 97110; 97116; 97162; 97530; 99285; G0378; J0692; J1815; J1940; J1956; J2270; J2930; J7060; P9016

== ENCOUNTER 2018-10-14 14:00 | Outpatient (CLI) | payer OTHER, MEDICAID ==
[~2018-10-14 14:00] MED LIST changes: -CIPR-230 PO; +DOCU-148 PO; +FERR-119 PO; +FOLI1TAB16 PO; +INSU100V11 SQ; +IPRA3AMP31 IH; +LORA0.5T PO; +MELA3TAB64 PO; +MORP-92 PO; +MULT-1085 PO; +OMEP40CA13 PO; +OXYC-580 PO; +OXYC-658 PO; +POLY17PO10 PO; +PRED1TAB PO; +SENN-162 PO; +THIA100T73 PO; -VANC1VIA21 IV; +VANC750P8 IV
== END 2018-10-14 23:59 | disposition home or self-care (01) ==
LOC: CARD DIAG 14:00
PROVIDERS: ATTEND Internal Medicine
DX: I05.0 Rheumatic mitral stenosis (principal); I05.8 Other rheumatic mitral valve diseases; R78.81 Bacteremia; J44.9 Chronic obstructive pulmonary disease, unspecified; I50.9 Heart failure, unspecified; E11.9 Type 2 diabetes mellitus without complications
CPT/HCPCS: 93306

== ENCOUNTER 2018-11-04 12:02 | Emergency (ER) | payer MEDICAID, MEDICARE, OTHER ==
[~2018-11-04] VITALS: Ht 165.1 cm; Wt 75.0 kg
[2018-11-04 13:02] LABS: BASOPHILS % (AUTO) 0.3 % (0-1); EOSINOPHILS % (AUTO) 0.3 % (0-6); HEMATOCRIT 31.8 % (42.0-52.0); HEMOGLOBIN 10.3 g/dl (14.0-17.9); LYMPHOCYTES # (AUTO) 0.4 X10'3 (1.1-4.8); LYMPHOCYTES % (AUTO) 5.5 % (21-51); MEAN CORPUSCULAR HEMOGLOBIN 28.7 PG (27.0-31.0); MEAN CORPUSCULAR HGB CONC 32.6 g/dL (33.0-36.5); MEAN CORPUSCULAR VOLUME 88.3 FL (78-98); MEAN PLATELET VOLUME 10.1 FL (7.4-10.4); NEUTROPHILS # (AUTO) 5.5 X10'3 (1.8-7.7); NEUTROPHILS % (AUTO) 68.9 % (42-75); PLATELET COUNT 113 X10'3 (140-440)
[2018-11-04 13:12] LABS: PARTIAL THROMBOPLASTIN TIME 27 SECONDS (22-32)
[2018-11-04 13:13] LABS: ALANINE AMINOTRANSFERASE 20 U/L (12-78); ALBUMIN 2.8 G/DL (3.4-5.0); ALBUMIN/GLOBULIN RATIO 0.5 (1.1-1.5); ALKALINE PHOSPHATASE 86 IU/L (46-116); ANION GAP 7 (8-16); ASPARTATE AMINO TRANSFERASE 19 U/L (10-37); BILIRUBIN,TOTAL 1.1 MG/DL (0.1-1.0); BLOOD UREA NITROGEN 30 MG/DL (7-18); CALCIUM 9.5 MG/DL (8.5-10.1); CHLORIDE 101 MMOL/L (99-107); CREATININE 0.81 MG/DL (0.60-1.10); GLUCOSE 233 MG/DL (70-104); POTASSIUM 4.1 MMOL/L (3.5-5.1); SODIUM 140 MMOL/L (135-145); TOTAL CARBON DIOXIDE 32.5 MMOL/L (24-32); TOTAL PROTEIN 7.9 G/DL (6.4-8.2); eGFR > 90 ML/MIN
[2018-11-04] MEDS ORDERED: CefTRIAXone 2gm/D5W 50ml 50 ML IV ONE (13:15)
[2018-11-04 13:21] LABS: TROPONIN I < 0.04 NG/ML (0.0-0.05)
[2018-11-04 13:24] LABS: CLARITY,URINE SLIGHTLY CLOUDY (Clear); COLOR,URINE YELLOW (Yellow); GLUCOSE, URINE NEGATIVE (Neg); KETONES,URINE 15 mg/dl (Neg); LEUKOCYTE ESTERASE ,URINE MODERATE (Neg); NITRITES, URINE NEGATIVE (Neg); OCCULT BLOOD,URINE TRACE-INTACT (Neg); PROTEIN,URINE 30 mg/dl (Neg); UROBILINOGEN,URINE >=8.0 E.U/dL (0.2-1.0)
[2018-11-04 13:36] LABS: UA COLLECTION TYPE URINAL
[2018-11-04 13:38] LABS: RBC,URINE 0-2 /HPF (0-2); WBC,URINE 50-100 /HPF (0-4)
[2018-11-04 13:39] LABS: BACTERIA,URINE 1+ /HPF (Neg); MUCUS STRANDS FEW /LPF (Neg); SQUAMOUS EPITHELIAL CELL,UR FEW /LPF (FEW); WBC CLUMPS,URINE FEW /HPF (NEGATIVE)
[2018-11-04 13:40] LABS: YEAST MANY /HPF (NEGATIVE)
--- NOTE | 2018-11-04 13:40 | NUR ---
CLARITZA FROM SUPERVISOR NUT PROCESSING AT BEDSIDE.
[2018-11-04 14:13] LABS: TOTAL CELLS COUNTED 100
[2018-11-04 14:14] LABS: ANISOCYTOSIS 1+; PLATELET ESTIMATE DECREASED
--- NOTE | 2018-11-04 14:59 | NUR ---
PT SLEEPING LAYING SUPINE, RESPIRATIONS EVEN AND UNLABORED. NO DISTRESS NOTED AT THIS TIME.
[2018-11-04] MEDS ORDERED: CEPH500C5 PO (15:15)
[2018-11-04 17:30] VITALS: BP 169/83
--- NOTE | 2018-11-04 19:22 | NUR ---
PT LEFT THE ER IN A WHEELHAIR WITH CAREGIVER. PT WAS WHEELED OUT TO PARKING LOT AND 2 PERSON ASSIST IN TO CAREGIVER'S SUV.
--- NOTE | 2018-11-06 10:06 | NUR ---
PT STATES HE IS FEELING 100% BETTER AND HOME HEALTH NURSE IS COMING IN TODAY. STILL TAKING HIS ABX. ADVISED IF HE STARTS FEELING BAD AGAIN TO COME IN RIGHT AWAY.
== END 2018-11-04 19:23 | disposition home or self-care (01) ==
LOC: ER 12:02
DX: E86.0 Dehydration (principal); N39.0 Urinary tract infection, site not specified; J44.9 Chronic obstructive pulmonary disease, unspecified; E11.9 Type 2 diabetes mellitus without complications; Z86.14 Personal history of Methicillin resistant Staphylococcus aureus infection; Z79.2 Long term (current) use of antibiotics; Z79.4 Long term (current) use of insulin; Z79.899 Other long term (current) drug therapy
CPT/HCPCS: 36415; 71045; 80053; 81001; 82948; 83605; 83735; 83880; 84145; 84484; 85025; 85610; 85730; 87040; 87077; 87088; 87186; 93005; 96365; 99284; J0696